=== PATIENT | male | born 1970 | race Caucasian/White ===

== ENCOUNTER 2016-10-01 10:03 | Day surgery (SDC) | payer BC ==
[~2016-10-01] VITALS: Ht 175.3 cm; Wt 103.5 kg
[~2016-10-01 10:03] MED LIST: BUPIVACAINE/PF-EPI 0.5% 1:200K ONE; LIDOCAINE/PF 1%-EPI 1:200K, 30ML ONE
[2016-10-01] MEDS ORDERED: LACTATED RINGERS 1,000 ML IV SCH (10:34)
[2016-10-01 10:37] VITALS: BP 137/85
[2016-10-01] MEDS ORDERED: EPINEPHRINE 1 MG/ML, 1ML ONE (11:32)
[2016-10-01] MEDS ORDERED: OXYMETAZOLINE NASAL SPRAY 0.05%, 15ML ONE (11:32)
[2016-10-01] MEDS ORDERED: LIDOCAINE/PF 1%, 30ML ONE (11:33)
[2016-10-01] MEDS ORDERED: FENTANYL PF 250 MCG/5ML ONE ×2 (12:08)
[2016-10-01] MEDS ORDERED: MIDAZOLAM 1 MG/ML, 2ML ONE ×2 (12:08)
[2016-10-01] MEDS ORDERED: PROPOFOL 10 MG/ML, 20ML ONE (12:43)
[2016-10-01] MEDS ORDERED: SUCCINYLCHOLINE 20 MG/ML, 10ML ONE (12:43)
[2016-10-01] MEDS ORDERED: DEXAMETHASONE 4 MG/ML, 1ML ONE (12:43)
[2016-10-01] MEDS ORDERED: LIDOCAINE 1%, 20ML INFIL ONE (13:07)
[2016-10-01] MEDS ORDERED: EPINEPHRINE 1 MG/ML, 1ML INFIL ONE (13:08)
[2016-10-01] MEDS ORDERED: ACETAMINOPHEN 325 MG TABLET PO PRN (13:30)
[2016-10-01] MEDS ORDERED: ONDANSETRON 2MG/ML, 2ML IVPush PRN (13:30)
[2016-10-01] MEDS ORDERED: MEPERIDINE/PF 25MG/0.5ML IVPush PRN (13:30)
[2016-10-01] MEDS ORDERED: FENTANYL PF 100 MCG/2ML IV PRN (13:30)
[2016-10-01] MEDS ORDERED: PROMETHAZINE 25 MG/ML, 1ML IV PRN (13:30)
[2016-10-01] MEDS ORDERED: hydrALAzine 20 MG/ML, 1ML IV PRN (13:30)
[2016-10-01] MEDS ORDERED: OXYcodone 5 MG/5 ML ORAL.SOL UDC PO PRN (13:30)
[2016-10-01] MEDS ORDERED: HYDROmorphone 1 MG/ML, 1ML IV PRN (13:30)
[2016-10-01] MEDS ORDERED: LABETALOL 5MG/ML, 20ML IV PRN (13:30)
== END 2016-10-01 14:30 ==
LOC: OUT 10:03
PROVIDERS: ATTEND Otolaryngology
DX: K13.21 Leukoplakia of oral mucosa, including tongue (principal)
CPT/HCPCS: 40808; 40812; 88304; J0171; J0330; J1100; J2250; J2704; J3010; J3490; J7120